=== PATIENT | female | born 2000 | race Two or more races ===

== ENCOUNTER 2020-12-15 13:11 | Emergency (ER) | payer MEDICAID ==
--- NOTE | 2020-12-15 14:03 | EDM.PDOCBH ---
ED HPI GENERAL MEDICAL PROBLEM - General Chief Complaint: Behavioral/Psych Stated Complaint: DEPRESSION,ANXITEY Time Seen by Provider: 12/15/20 13:50 Source of Information: Reports: Patient, Family. Denies: Old Records History Limitations: Reports: Other (no old records) - History of Present Illness INITIAL COMMENTS - FREE TEXT/NARRATIVE: 20 yo female presents with her boyfriend and their baby for depression and anxiety. Are new in town less than a year ago and have no local providers. They currently get their care at [facility] in [place], [place]. They were just seen in [place] and are not satisfied with the results of that visit so came here. No reported suicidal ideation. Not anxious about any one thing in general. Aleisha is on one medication currently, but they forgot it in [place] and don't recall the name of it. Onset: Gradual, Unknown/Unsure Duration: Week(s):, Constant Location: Reports: Generalized Quality: Reports: Other (no pain reported) Severity: Moderate Improves with: Reports: None Worsens with: Reports: Other (unsure, patient and boyfriend feel it is related to her "contraceptive implant") Context: Reports: Other (See HPI) Associated Symptoms: Reports: No Other Symptoms Treatments LOAF COUNTER: Reports: Other (see below) (none) ED ROS GENERAL - Review of Systems Review Of Systems: See Below Constitutional: Reports: No Symptoms HEENT: Reports: No Symptoms Respiratory: Reports: No Symptoms Cardiovascular: Reports: No Symptoms GI/Abdominal: Reports: No Symptoms : Reports: No Symptoms Musculoskeletal: Reports: No Symptoms Skin: Reports: No Symptoms Neurological: Reports: No Symptoms Psychiatric: Reports: Anxiety, Depression, Other (sleep disturbance) ED EXAM, BEHAVIORAL HEALTH - Physical Exam Exam: See Below Exam Limited By: No Limitations General Appearance: Alert, WD/WN, No Apparent Distress Eye Exam: Bilateral Eye: Normal Inspection Ears: Hearing Grossly Normal Nose: Normal Inspection, No Blood Throat/Mouth: Normal Lips, Normal Voice, No Airway Compromise Neurological: Alert, Normal Mood/Affect, CN II-XII Intact, Normal Cognition, No Motor/Sensory Deficits, Oriented x 3 Psychiatric: Alert, Normal Affect, Oriented, Flat Affect, Other (talks very little, boyfriend does most of the talking for her. He does not appear to be controlling, but more supportive. ) Skin Exam: Warm, Dry, Intact, Normal color, No rash Departure - Departure Time of Disposition: 14:10 Disposition: Home, Self-Care 01 Condition: Fair Clinical Impression: Depression with anxiety - Discharge Information *PRESCRIPTION DRUG MONITORING PROGRAM REVIEWED*: Not Applicable *COPY OF PRESCRIPTION DRUG MONITORING REPORT IN PATIENT MIGUEL ÁNGEL: Not Applicable Forms: ED Department Discharge Additional Instructions: Get established with a primary care provider locally and call the counseling number we gave you today to set up an appt. You will need the name of your current medication for your appt's.
== END 2020-12-15 14:20 | disposition home or self-care (01) ==
LOC: FB.ED 13:11
DX: F41.8 Other specified anxiety disorders (principal)
CPT/HCPCS: 99283